=== PATIENT | female | born 1985 | race Caucasian/White ===

== ENCOUNTER → 2021-01-30 | Outpatient (CLI) | payer OTHER, BC ==
[~2021-01-30] MED LIST: AUGMENTIN 875-1 EACH PO; IBUPROFEN600 MG PO; NORCO 5-325 TA1 EACH PO; SINGULAIR10 MG PO; ZYRTEC10 MG PO
== END ==
LOC: LAB 14:30
DX: Z32.00 Encounter for pregnancy test, result unknown (principal)
CPT/HCPCS: 36415; 84144; 84702

== ENCOUNTER → 2021-02-02 | Outpatient (CLI) | payer OTHER, BC | LOC: LAB 14:16 | DX: Z32.01 Encounter for pregnancy test, result positive (principal) | CPT/HCPCS: 36415; 84702 ==

== ENCOUNTER 2021-11-18 18:56 | Emergency (ER) | payer BC ==
[2021-11-18 19:31] LABS: HEMOGLOBIN 12.9 gm/dl (12.3-15.3); RED BLOOD COUNT 4.26 M/UL (4.00-5.10); WHITE BLOOD COUNT 11.5 K/UL (4.5-11.0)
[2021-11-18 19:47] LABS: BUN/CREATININE RATIO 8 (0-10)
[2021-11-18] MEDS ORDERED: ZOFRAN ODT 4 MG4 MG PO (23:12)
== END 2021-11-18 23:25 | disposition home or self-care (01) ==
LOC: ER1 18:56
PROVIDERS: Family Medicine
DX: K52.9 Noninfective gastroenteritis and colitis, unspecified (principal); Z90.89 Acquired absence of other organs; Z20.822 Contact with and (suspected) exposure to COVID-19
CPT/HCPCS: 0240U; 80053; 81001; 83690; 84703; 85025; 87045; 87046; 87449; 96374; 96375; 99284; J1885; J2405; Q9967